=== PATIENT | female | born 1955 | race Two or more races ===

== ENCOUNTER 2024-06-14 22:48 | Inpatient (IN) | payer MEDICARE ==
[~2024-06-14] VITALS: Ht 154.9 cm; Wt 63.5 kg
[2024-06-14 21:30] VITALS: BP 142/73; TEMP 98; O2SAT 96
[2024-06-14] MEDS ORDERED: REMEDY ESSENTIAL ZINC PASTE 113 GM TOP PRN (23:15)
[2024-06-14] MEDS ORDERED: FAMO20TA8 PO (23:40)
[2024-06-14] MEDS ORDERED: ASPI81TA31 PO (23:40)
[2024-06-14] MEDS ORDERED: DOCU100C36 PO (23:49)
[2024-06-14] MEDS ORDERED: TRAM50TA2 PO (23:49)
[2024-06-14] MEDS ORDERED: GABA300C PO (23:49)
[2024-06-14] MEDS ORDERED: HYDR-3972 PO (23:49)
[2024-06-15] MEDS ORDERED: DOCUSATE SODIUM 100 MG CAPSULE PO PRN (00:30)
[2024-06-15] MEDS: TRAMADOL HCL 50 MG TABLET PO PRN (06:35)
[2024-06-15] MEDS: ASPIRIN 81 MG TAB.CHEW PO SCH (09:42)
[2024-06-15] MEDS: FAMOTIDINE 20 MG TABLET PO SCH (09:42)
[2024-06-15 12:45] LABS: BASOPHILS % (AUTO) 0.6 % (0.0-2.0); EOSINOPHILS # (AUTO) 0.2 K/uL (0.0-0.7); EOSINOPHILS % (AUTO) 1.9 % (0.0-7.0); HEMATOCRIT 30.5 % (31.2-41.9); HEMOGLOBIN 10.2 g/dL (10.9-14.3); LYMPHOCYTES # (AUTO) 1.1 K/uL (0.8-4.8); LYMPHOCYTES % (AUTO) 13.9 % (20.5-51.5); MEAN CORPUSCULAR HEMOGLOBIN 32.7 uug (24.7-32.8); MEAN CORPUSCULAR HGB CONC 34 g/dL (32.3-35.6); MEAN CORPUSCULAR VOLUME 97.5 fL (75.5-95.3); MONOCYTES # (AUTO) 0.4 K/uL (0.1-1.30); MONOCYTES % (AUTO) 4.3 % (0.0-11.0); NEUTROPHILS # (AUTO) 6.6 K/uL (1.8-8.9); NEUTROPHILS % (AUTO) 79.3 % (38.5-71.5); PLATELET COUNT (AUTO) 242 K/uL (179-408); RED BLOOD CELL COUNT(AUTO) 3.13 MIL/uL (3.63-4.92); RED CELL DISTRIBUTION WIDTH 15.5 % (12.3-17.7); WHITE BLOOD COUNT (AUTO) 8.3 K/uL (3.8-11.8)
[2024-06-15 12:50] LABS: DIFFERENTIAL COMMENT 1
[2024-06-15 12:56] LABS: CALCIUM 8.8 mg/dL (8.5-10.1); CARBON DIOXIDE 26 mmol/L (21-32); CHLORIDE 105 mmol/L (98-107); CREATININE 2.2 mg/dL (0.6-1.3); GLUCOSE 123 mg/dL (74-106); SODIUM SERUM 139 mmol/L (136-145); UREA NITROGEN, BLOOD 48 mg/dL (7-18)
[2024-06-15 19:31] VITALS: BP 118/68; TEMP 97.8; O2SAT 94
[2024-06-15 20:18] VITALS: BP 123/67; TEMP 98.4; O2SAT 96
[2024-06-15] MEDS: GABAPENTIN 300 MG CAPSULE PO SCH (20:47)
[2024-06-15] MEDS: HEPARIN SODIUM,PORCINE 5,000 UNITS/ML VIAL SQ SCH (20:49)
[2024-06-16 07:07] LABS: BASOPHILS # (AUTO) 0.1 K/UL (0.0-0.2); BASOPHILS % (AUTO) 0.7 % (0.0-2.0); EOSINOPHILS # (AUTO) 0.2 K/uL (0.0-0.7); EOSINOPHILS % (AUTO) 2.1 % (0.0-7.0); HEMATOCRIT 32.7 % (31.2-41.9); HEMOGLOBIN 11.6 g/dL (10.9-14.3); LYMPHOCYTES # (AUTO) 1.6 K/uL (0.8-4.8); LYMPHOCYTES % (AUTO) 19.5 % (20.5-51.5); MEAN CORPUSCULAR HEMOGLOBIN 33.5 uug (24.7-32.8); MEAN CORPUSCULAR HGB CONC 36 g/dL (32.3-35.6); MEAN CORPUSCULAR VOLUME 94.1 fL (75.5-95.3); MONOCYTES # (AUTO) 0.9 K/uL (0.1-1.30); MONOCYTES % (AUTO) 10.6 % (0.0-11.0); NEUTROPHILS # (AUTO) 5.6 K/uL (1.8-8.9); NEUTROPHILS % (AUTO) 67.1 % (38.5-71.5); PLATELET COUNT (AUTO) 237 K/uL (179-408); RED BLOOD CELL COUNT(AUTO) 3.48 MIL/uL (3.63-4.92); RED CELL DISTRIBUTION WIDTH 13.4 % (12.3-17.7); WHITE BLOOD COUNT (AUTO) 8.4 K/uL (3.8-11.8)
[2024-06-16 07:34] LABS: ALANINE AMINOTRANSFERASE 50 U/L (14-59); ALBUMIN 2.9 g/dL (3.4-5.0); ALKALINE PHOSPHATASE 130 U/L (50-136); ASPARTATE AMINOTRANSFERASE 57 U/L (15-37); BILIRUBIN,TOTAL 0.6 mg/dL (0.2-1.0); CALCIUM 8.9 mg/dL (8.5-10.1); CARBON DIOXIDE 29 mmol/L (21-32); CHLORIDE 106 mmol/L (98-107); CREATINE KINASE, TOTAL 1348 U/L (26-192); CREATININE 1.2 mg/dL (0.6-1.3); MAGNESIUM 2.1 mg/dL (1.8-2.4); PHOSPHOROUS 3.3 mg/dL (2.5-4.9); POTASSIUM 4.1 mmol/L (3.5-5.1); SODIUM SERUM 142 mmol/L (136-145); TOTAL PROTEIN, SERUM 6.4 g/dL (6.4-8.2); UREA NITROGEN, BLOOD 26 mg/dL (7-18)
[2024-06-16 07:43] LABS: GLUCOSE 88 mg/dL (74-106)
[2024-06-16 16:26] VITALS: BP 118/69; TEMP 98.8; O2SAT 96
[2024-06-16] MEDS: ASPIRIN 81 MG TAB.CHEW PO SCH (16:50)
[2024-06-16 20:00] VITALS: BP 147/83; TEMP 98; O2SAT 97
[2024-06-17 06:00] VITALS: BP 132/75; TEMP 98.1; O2SAT 95
[2024-06-17 08:10] LABS: PTH, INTACT 21 pg/mL (15-65)
[2024-06-17] MEDS: ENSURE ENLIVE (VAN) 240 ML LIQUID PO SCH (08:52)
[2024-06-17 16:00] VITALS: BP 127/65; TEMP 98; O2SAT 99
[2024-06-17 21:17] VITALS: BP 115/46; TEMP 97.9; O2SAT 97
[2024-06-18 06:12] VITALS: BP 120/63; TEMP 97.9
[2024-06-18 07:12] LABS: BASOPHILS # (AUTO) 0.1 K/UL (0.0-0.2); BASOPHILS % (AUTO) 0.7 % (0.0-2.0); EOSINOPHILS # (AUTO) 0.2 K/uL (0.0-0.7); EOSINOPHILS % (AUTO) 2.1 % (0.0-7.0); HEMATOCRIT 32.4 % (31.2-41.9); HEMOGLOBIN 11.4 g/dL (10.9-14.3); LYMPHOCYTES # (AUTO) 1.7 K/uL (0.8-4.8); LYMPHOCYTES % (AUTO) 21.1 % (20.5-51.5); MEAN CORPUSCULAR HEMOGLOBIN 33.2 uug (24.7-32.8); MEAN CORPUSCULAR HGB CONC 35 g/dL (32.3-35.6); MEAN CORPUSCULAR VOLUME 94.2 fL (75.5-95.3); MONOCYTES # (AUTO) 0.8 K/uL (0.1-1.30); NEUTROPHILS # (AUTO) 5.3 K/uL (1.8-8.9); NEUTROPHILS % (AUTO) 66.1 % (38.5-71.5); PLATELET COUNT (AUTO) 286 K/uL (179-408); RED BLOOD CELL COUNT(AUTO) 3.44 MIL/uL (3.63-4.92); RED CELL DISTRIBUTION WIDTH 12.8 % (12.3-17.7)
[2024-06-18 07:16] LABS: DIFFERENTIAL COMMENT 1
[2024-06-18 07:35] LABS: ALANINE AMINOTRANSFERASE 52 U/L (14-59); ALKALINE PHOSPHATASE 164 U/L (50-136); ASPARTATE AMINOTRANSFERASE 42 U/L (15-37); BILIRUBIN,TOTAL 0.7 mg/dL (0.2-1.0); CARBON DIOXIDE 30 mmol/L (21-32); CHLORIDE 104 mmol/L (98-107); CREATININE 1.2 mg/dL (0.6-1.3); GLUCOSE 116 mg/dL (74-106); MAGNESIUM 2.2 mg/dL (1.8-2.4); PHOSPHOROUS 3.6 mg/dL (2.5-4.9); POTASSIUM 4.1 mmol/L (3.5-5.1); SODIUM SERUM 140 mmol/L (136-145); TOTAL PROTEIN, SERUM 6.3 g/dL (6.4-8.2); UREA NITROGEN, BLOOD 19 mg/dL (7-18)
[2024-06-18 16:43] VITALS: BP 124/81; TEMP 97.9; O2SAT 97
[2024-06-18 19:51] VITALS: BP 118/67; TEMP 98.1; O2SAT 95
[2024-06-19 06:50] VITALS: BP 123/72; TEMP 98; O2SAT 95
[2024-06-19 16:00] VITALS: BP 134/78; TEMP 98; O2SAT 96
[2024-06-19 20:12] VITALS: BP 140/73; TEMP 97.6; O2SAT 97
[2024-06-20 05:03] VITALS: BP 130/79; TEMP 98.1; O2SAT 96
[2024-06-20 16:14] VITALS: BP 111/78; TEMP 97.8; O2SAT 98
[2024-06-20 20:16] VITALS: BP 122/75; TEMP 98.1; O2SAT 96
[2024-06-21 06:17] VITALS: BP 125/85; TEMP 97.6; O2SAT 98
[2024-06-21 18:32] VITALS: BP 122/73; TEMP 97.3; O2SAT 95
[2024-06-21 19:00] VITALS: BP 114/63; TEMP 98.5; O2SAT 95
[2024-06-22 06:00] VITALS: BP 127/69; TEMP 97.9; O2SAT 94
[2024-06-22 09:15] LABS: BASOPHILS % (AUTO) 0.6 % (0.0-2.0); EOSINOPHILS # (AUTO) 0.1 K/uL (0.0-0.7); EOSINOPHILS % (AUTO) 1.6 % (0.0-7.0); HEMATOCRIT 32.2 % (31.2-41.9); HEMOGLOBIN 11.2 g/dL (10.9-14.3); LYMPHOCYTES # (AUTO) 1.4 K/uL (0.8-4.8); LYMPHOCYTES % (AUTO) 18.4 % (20.5-51.5); MEAN CORPUSCULAR HGB CONC 35 g/dL (32.3-35.6); MEAN CORPUSCULAR VOLUME 94.6 fL (75.5-95.3); MONOCYTES # (AUTO) 0.8 K/uL (0.1-1.30); MONOCYTES % (AUTO) 10.1 % (0.0-11.0); NEUTROPHILS # (AUTO) 5.3 K/uL (1.8-8.9); NEUTROPHILS % (AUTO) 69.3 % (38.5-71.5); PLATELET COUNT (AUTO) 298 K/uL (179-408); WHITE BLOOD COUNT (AUTO) 7.7 K/uL (3.8-11.8)
[2024-06-22 09:31] LABS: DIFFERENTIAL COMMENT 1
[2024-06-22 10:03] LABS: ALANINE AMINOTRANSFERASE 43 U/L (14-59); ALKALINE PHOSPHATASE 155 U/L (50-136); ASPARTATE AMINOTRANSFERASE 18 U/L (15-37); BILIRUBIN,TOTAL 0.5 mg/dL (0.2-1.0); CALCIUM 8.8 mg/dL (8.5-10.1); CARBON DIOXIDE 29 mmol/L (21-32); CHLORIDE 104 mmol/L (98-107); CHOLESTEROL 253 mg/dL (<200); CREATININE 1.1 mg/dL (0.6-1.3); GLUCOSE 103 mg/dL (74-106); HDL CHOLESTEROL 49 mg/dL (40-60); MAGNESIUM 2.1 mg/dL (1.8-2.4); PHOSPHOROUS 4.2 mg/dL (2.5-4.9); POTASSIUM 3.9 mmol/L (3.5-5.1); SODIUM SERUM 138 mmol/L (136-145); TOTAL PROTEIN, SERUM 6.2 g/dL (6.4-8.2); TRIGLYCERIDES 128 MG/DL (30-150); UREA NITROGEN, BLOOD 19 mg/dL (7-18)
[2024-06-22 11:29] LABS: THYROID STIMULATING HORMONE 2.157 mIU/mL (0.358-3.740)
[2024-06-22 14:10] LABS: ALBUMIN 2.8 g/dL (2.9-4.4); ALPHA-1-GLOBULIN 0.3 g/dL (0.0-0.4); ALPHA-2-GLOBULIN 0.9 g/dL (0.4-1.0); GAMMA GLOBULIN 0.5 g/dL (0.4-1.8); GLOBULIN, TOTAL 2.7 g/dL (2.2-3.9); M-SPIKE Not Observed g/dL (Not Observed); PROTEIN, TOTAL 5.5 g/dL (6.0-8.5)
[2024-06-22 14:59] VITALS: BP 115/62; TEMP 98.1; O2SAT 97
[2024-06-22 19:56] VITALS: BP 128/68; TEMP 97.5; O2SAT 97
[2024-06-22] MEDS: ATORVASTATIN 10 MG TABLET PO SCH (20:37)
[2024-06-23 05:47] VITALS: BP 107/78; TEMP 97.9; O2SAT 96
[2024-06-23 08:10] LABS: *TESTOSTERONE, SERUM 6 ng/dL (3-67); ESTRADIOL <5.0 pg/mL (0.0-54.7); PROGESTERONE <0.1 ng/mL (.)
[2024-06-23 16:10] VITALS: BP 134/81; TEMP 97.8; O2SAT 96
[2024-06-23 20:00] VITALS: TEMP 97.9
[2024-06-23] MEDS: METHOCARBAMOL 500 MG TABLET PO PRN (21:46)
[2024-06-24 06:00] VITALS: TEMP 97.3
[2024-06-24] MEDS: HYDROCODONE/APAP 5-325MG TABLET PO PRN (14:40)
[2024-06-24 16:12] VITALS: BP 128/75; TEMP 97.7; O2SAT 97
[2024-06-24 20:02] VITALS: BP 138/77; TEMP 98.6; O2SAT 98
[2024-06-24] MEDS ORDERED: TIZANIDINE HCL 4 MG TABLET PO SCH (20:30)
[2024-06-24] MEDS: TIZANIDINE HCL 4 MG TABLET PO SCH (23:28)
[2024-06-25] MEDS: FAMOTIDINE 20 MG TABLET PO SCH (08:14)
[2024-06-25 15:19] VITALS: BP 125/75; TEMP 99.9; O2SAT 100
[2024-06-25 17:54] LABS: BASOPHILS # (AUTO) 0.1 K/UL (0.0-0.2); BASOPHILS % (AUTO) 0.4 % (0.0-2.0); EOSINOPHILS # (AUTO) 0.1 K/uL (0.0-0.7); EOSINOPHILS % (AUTO) 0.8 % (0.0-7.0); HEMATOCRIT 31.7 % (31.2-41.9); HEMOGLOBIN 10.9 g/dL (10.9-14.3); LYMPHOCYTES # (AUTO) 1.5 K/uL (0.8-4.8); LYMPHOCYTES % (AUTO) 11.3 % (20.5-51.5); MEAN CORPUSCULAR HEMOGLOBIN 32.5 uug (24.7-32.8); MEAN CORPUSCULAR HGB CONC 34 g/dL (32.3-35.6); MEAN CORPUSCULAR VOLUME 94.6 fL (75.5-95.3); MONOCYTES # (AUTO) 1.1 K/uL (0.1-1.30); NEUTROPHILS # (AUTO) 10.5 K/uL (1.8-8.9); NEUTROPHILS % (AUTO) 79.5 % (38.5-71.5); PLATELET COUNT (AUTO) 302 K/uL (179-408); RED BLOOD CELL COUNT(AUTO) 3.35 MIL/uL (3.63-4.92); RED CELL DISTRIBUTION WIDTH 13.3 % (12.3-17.7); WHITE BLOOD COUNT (AUTO) 13.2 K/uL (3.8-11.8)
[2024-06-25 18:02] LABS: CALCIUM 9.1 mg/dL (8.5-10.1); CARBON DIOXIDE 28 mmol/L (21-32); CHLORIDE 102 mmol/L (98-107); CREATININE 1.1 mg/dL (0.6-1.3); GLUCOSE 100 mg/dL (74-106); POTASSIUM 3.8 mmol/L (3.5-5.1); SODIUM SERUM 140 mmol/L (136-145); UREA NITROGEN, BLOOD 17 mg/dL (7-18)
[2024-06-25 20:25] VITALS: BP 136/79; TEMP 97.9; O2SAT 95
[2024-06-26 09:01] LABS: *BILIRUBIN,URIN NEGATIVE (NEGATIVE); *BLOOD, URINE NEGATIVE (NEGATIVE); *CLARITY,URINE CLEAR (CLEAR); *COLOR,URINE YELLOW (YELLOW); *KETONES,URINE NEGATIVE (NEGATIVE); *PROTEIN,URINE NEGATIVE (NEGATIVE); *UROBILINOGEN,URINE 0.2 E.U./dl (NORMAL); LEUKOCYTE ESTERASE ,URINE TRACE (NEGATIVE); NITRITE, URINE NEGATIVE (NEGATIVE); UGLUCOSE NEGATIVE (NEGATIVE)
[2024-06-26 09:07] LABS: BASOPHILS % (AUTO) 0.4 % (0.0-2.0); EOSINOPHILS # (AUTO) 0.1 K/uL (0.0-0.7); HEMATOCRIT 31.2 % (31.2-41.9); HEMOGLOBIN 10.7 g/dL (10.9-14.3); LYMPHOCYTES # (AUTO) 1.4 K/uL (0.8-4.8); LYMPHOCYTES % (AUTO) 13.8 % (20.5-51.5); MEAN CORPUSCULAR HEMOGLOBIN 32.7 uug (24.7-32.8); MEAN CORPUSCULAR HGB CONC 34 g/dL (32.3-35.6); MEAN CORPUSCULAR VOLUME 95.2 fL (75.5-95.3); MONOCYTES # (AUTO) 0.7 K/uL (0.1-1.30); MONOCYTES % (AUTO) 7.1 % (0.0-11.0); NEUTROPHILS # (AUTO) 7.7 K/uL (1.8-8.9); NEUTROPHILS % (AUTO) 77.7 % (38.5-71.5); PLATELET COUNT (AUTO) 268 K/uL (179-408); RED BLOOD CELL COUNT(AUTO) 3.28 MIL/uL (3.63-4.92); RED CELL DISTRIBUTION WIDTH 13.1 % (12.3-17.7); WHITE BLOOD COUNT (AUTO) 9.9 K/uL (3.8-11.8)
[2024-06-26 09:25] LABS: DIFFERENTIAL COMMENT 1
[2024-06-26 09:56] LABS: BACTERIA,URINE FEW /HPF (NONE SEEN)
[2024-06-26 10:15] LABS: ALANINE AMINOTRANSFERASE 26 U/L (14-59); ASPARTATE AMINOTRANSFERASE 11 U/L (15-37); BILIRUBIN,TOTAL 0.6 mg/dL (0.2-1.0); CARBON DIOXIDE 28 mmol/L (21-32); CHLORIDE 105 mmol/L (98-107); CREATININE 1.1 mg/dL (0.6-1.3); GLUCOSE 114 mg/dL (74-106); PHOSPHOROUS 4.5 mg/dL (2.5-4.9); POTASSIUM 3.8 mmol/L (3.5-5.1); SODIUM SERUM 140 mmol/L (136-145); TOTAL PROTEIN, SERUM 6.2 g/dL (6.4-8.2); UREA NITROGEN, BLOOD 13 mg/dL (7-18)
[2024-06-26 10:30] LABS: ALKALINE PHOSPHATASE 129 U/L (50-136)
[2024-06-26] MEDS: levoFLOXacin 500 MG TABLET PO SCH (11:01)
[2024-06-26 15:12] VITALS: BP 134/72; TEMP 98.4; O2SAT 98
[2024-06-26] MEDS ORDERED: ONDANSETRON HCL 4 MG TABLET PO PRN (15:15)
[2024-06-27 01:36] VITALS: BP 129/77; TEMP 98.8; O2SAT 95
[2024-06-27] MEDS ORDERED: TIZANIDINE HCL 4 MG TABLET PO SCH (08:45)
[2024-06-27 10:18] LABS: BASOPHILS % (AUTO) 0.5 % (0.0-2.0); EOSINOPHILS # (AUTO) 0.1 K/uL (0.0-0.7); EOSINOPHILS % (AUTO) 1.2 % (0.0-7.0); LYMPHOCYTES # (AUTO) 1.7 K/uL (0.8-4.8); LYMPHOCYTES % (AUTO) 16.5 % (20.5-51.5); MEAN CORPUSCULAR HEMOGLOBIN 32.5 uug (24.7-32.8); MEAN CORPUSCULAR HGB CONC 34 g/dL (32.3-35.6); MEAN CORPUSCULAR VOLUME 94.6 fL (75.5-95.3); MONOCYTES # (AUTO) 0.9 K/uL (0.1-1.30); MONOCYTES % (AUTO) 8.4 % (0.0-11.0); NEUTROPHILS # (AUTO) 7.4 K/uL (1.8-8.9); NEUTROPHILS % (AUTO) 73.4 % (38.5-71.5); PLATELET COUNT (AUTO) 348 K/uL (179-408); RED CELL DISTRIBUTION WIDTH 13.2 % (12.3-17.7); WHITE BLOOD COUNT (AUTO) 10.1 K/uL (3.8-11.8)
[2024-06-27 10:19] LABS: DIFFERENTIAL COMMENT 1
[2024-06-27] MEDS ORDERED: CEphaleXIN 500 MG CAPSULE PO SCH (10:45)
[2024-06-27] MEDS: CEphaleXIN 500 MG CAPSULE PO SCH (11:32)
[2024-06-27 14:26] VITALS: BP 111/70; TEMP 97.8; O2SAT 98
== END 2024-06-27 17:00 | disposition home health service (06) | DRG 559 ==
PROVIDERS: ADMIT Physical Medicine & Rehabilitation Pain Medicine; ATTEND Physical Medicine & Rehabilitation Pain Medicine
DX: Z47.1 Aftercare following joint replacement surgery (principal); N17.0 Acute kidney failure with tubular necrosis; D62 Acute posthemorrhagic anemia; D68.59 Other primary thrombophilia; N17.9 Acute kidney failure, unspecified; E44.0 Moderate protein-calorie malnutrition; N39.0 Urinary tract infection, site not specified; M16.11 Unilateral primary osteoarthritis, right hip; Z96.641 Presence of right artificial hip joint; D72.829 Elevated white blood cell count, unspecified; E78.00 Pure hypercholesterolemia, unspecified; I10 Essential (primary) hypertension; M89.8X9 Other specified disorders of bone, unspecified site; G62.9 Polyneuropathy, unspecified; Z88.0 Allergy status to penicillin; N13.9 Obstructive and reflux uropathy, unspecified
CPT/HCPCS: 36415; 71045; 72192; 82670; 83735; 83970; 84100; 84144; 84155; 84165; 84403; 84443; 85025; 97535-GO-CO; A4663; J1644